=== PATIENT | male | born 1940 | race Caucasian/White ===

== ENCOUNTER → 2017-03-03 | Outpatient (CLI) | payer MEDICARE, OTHER ==
[~2017-03-03] MED LIST: ASP325T PO; ATOR40TA PO; DILT360C26 PO; FLAX100031 PO; GLMP4T PO; LSNP10T PO; MULT-963 PO; PGLT30T PO; SITA1TAB6 PO; UBID100C17 PO
--- NOTE | 2017-03-03 13:41 | Diagnostic Imaging Report ---
CLINICAL INDICATION: AAA screening. EXAM: Ultrasound of the abdominal aorta. COMPARISON STUDY: None. FINDINGS: Of note, there is extensive bowel gas overlying the abdomen which obscures the proximal aorta and bilateral proximal common iliac arteries and measurements in these regions were unable to be obtained. The visualized mid and distal abdominal aorta shows no aneurysmal dilation and measures 1.9 cm x 2.2 cm and 1.9 cm x 1.7 cm in the AP and transverse dimensions, respectively. IMPRESSION: 1: Limited evaluation due to overlying bowel gas. The proximal abdominal aorta and bilateral iliac arteries were unable to be evaluated. 2: The mid and distal abdominal aorta shows no evidence of aneurysmal dilation. Dictated by: Dictated on workstation # [id number]
== END ==
LOC: RAD 08:31
PROVIDERS: ATTEND Internal Medicine Cardiovascular Disease
DX: R09.89 Other specified symptoms and signs involving the circulatory and respiratory systems (principal); R19.8 Other specified symptoms and signs involving the digestive system and abdomen
CPT/HCPCS: 76775

== ENCOUNTER 2017-03-24 21:00 | Outpatient (CLI) | payer MEDICARE, OTHER | END 2017-03-25 06:05 | disposition home or self-care (01) | LOC: SLEEP 21:00 | PROVIDERS: ATTEND Nurse Practitioner Family | DX: G47.33 Obstructive sleep apnea (adult) (pediatric) (principal); G25.81 Restless legs syndrome; I48.91 Unspecified atrial fibrillation; E13.9 Other specified diabetes mellitus without complications | CPT/HCPCS: 95811 ==

== ENCOUNTER 2017-05-20 19:42 | Outpatient (CLI) | payer MEDICARE, OTHER | END 2017-05-21 06:40 | disposition home or self-care (01) | LOC: SLEEP 19:42 | PROVIDERS: ATTEND Nurse Practitioner Family | DX: G47.33 Obstructive sleep apnea (adult) (pediatric) (principal); G25.81 Restless legs syndrome | CPT/HCPCS: 95811 ==

== ENCOUNTER 2018-04-02 05:35 | Outpatient (CLI) | payer MEDICARE, OTHER ==
[~2018-04-02] VITALS: Ht 190.5 cm; Wt 102.5 kg
[2018-04-02] MEDS ORDERED: GLUC1CAP37 PO (10:42)
[2018-04-02] MEDS ORDERED: GLIM4TAB PO (10:42)
[2018-04-02] MEDS ORDERED: MULT-35 PO (10:42)
[2018-04-02] MEDS ORDERED: DILT180C54 PO (10:42)
[2018-04-02] MEDS ORDERED: ATOR40TA70 PO (10:42)
[2018-04-02] MEDS ORDERED: SITA1TBM4 PO (10:42)
[2018-04-02] MEDS ORDERED: LISI10TA2 PO (10:42)
[2018-04-02] MEDS ORDERED: FLAX10004 PO (10:42)
[2018-04-02] MEDS ORDERED: RIVA20TA PO (10:42)
== END 2018-04-02 10:46 | disposition home or self-care (01) ==
LOC: PREOP 05:35
PROVIDERS: ATTEND Surgery
DX: Z01.818 Encounter for other preprocedural examination (principal)

== ENCOUNTER 2018-04-09 10:31 | Day surgery (SDC) | payer MEDICARE, OTHER ==
[~2018-04-09] VITALS: Ht 190.5 cm; Wt 102.5 kg
[~2018-04-09 10:31] MED LIST changes: +ATOR40TA70 PO; +DILT180C54 PO; +FLAX10004 PO; +GLIM4TAB PO; +GLUC1CAP37 PO; +LISI10TA2 PO; +MULT-35 PO; +RIVA20TA PO; +SITA1TBM4 PO
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
[2018-04-09] MEDS ORDERED: NS IV 500 ML 500 ML ONE (10:35)
[2018-04-09] MEDS ORDERED: NS IV 500 ML 500 ML IV PRN (10:41)
[2018-04-09 10:45] VITALS: BP 143/77
[2018-04-09] MEDS ORDERED: fentaNYL INJECTION 100 MCG/2 ML AMP IVP ONE (10:45)
[2018-04-09] MEDS ORDERED: MIDAZOLAM 2 MG/2 ML (VERSED) VIAL IVP ONE (10:45)
[2018-04-09] MEDS ORDERED: MIDAZOLAM 2 MG/2 ML (VERSED) VIAL ONE ×3 (10:52)
[2018-04-09] MEDS ORDERED: fentaNYL INJECTION 100 MCG/2 ML AMP ONE (10:53)
[2018-04-09] MEDS ORDERED: GLIM4TAB PO (11:08)
--- NOTE | 2018-04-09 12:05 | Conscious Sedation/ASA ---
Conscious Sedation Pre-Proced Time 10:30 ASA Score 2 For ASA 3 and 4: Consider anesthesia and medical clearance. Also, for patients with a history of failed moderate sedation consider anesthesia. Airway Lungs Heart ASA score ASA 1: a normal healthy patient ASA 2: a patient with a mild systemic disease (mid diabetes, controlled hypertension, obesity ASA 3: a patient with a severe systemic disease that limits activity (angina , COPD, prior Myocardial infarction) ASA 4: a patient with an incapacitating disease that is a constant threat to life (CHF, renal failure) ASA 5: a moribund patient not expected to survive 24 hrs. (ruptured aneurysm) ASA 6: a declared brain patient whose organs are being harvested. For emergent operations, add the letter E after the classification Mallampati Classification Grade 2 Sedation Plan Analgesia, Amnesia, Plan communicated to team members, Discussed options with patient/fam, Discussed risks with patient/fam The patient is an appropriate candidate to undergo the planned procedure, sedation, and anesthesia. The patient immediately re-assessed prior to indication. ELVIRA MCKEON MD Apr 09, 2018 12:05 pm
--- NOTE | 2018-04-09 12:06 | Progress Note-Pre Operative ---
Pre-Operative Progress Note H&P Reviewed The H&P was reviewed, patient examined and no changes noted. Date Seen by Provider: Apr 09, 2018 Time Seen by Provider: 10: Date H&P Reviewed: Apr 09, 2018 Time H&P Reviewed: : Pre-Operative Diagnosis: rectal bleed, hx rectal polyp ELVIRA MCKEON MD Apr 09, 2018 12:06 pm
--- NOTE | 2018-04-09 12:07 | Progress Note-Post Operative ---
Post-Operative Progess Note Surgeon (s)/Box Toe Cutter (s) Surgeon ELVIRA MCKEON MD Box Toe Cutter: none Pre-Operative Diagnosis rectal bleed, hx rectal polyp Post-Operative Diagnosis chronic stage 1 ext, stage 2-3 int hemorrhoids, small HP rectal polyp(1-2mm) Procedure & Operative Findings Date of Procedure 04/09/18 Procedure Performed/Findings Colonoscopy with bx. Anesthesia Type CS Estimated Blood Loss Estimated blood loss (mL): minimal Specimens/Packing Specimens Removed rectal polyp ELVIRA MCKEON MD Apr 09, 2018 12:07 pm
--- NOTE | 2018-04-09 12:08 | Discharge Inst-Surgical ---
D/C Lap Instructions-LINDA Follow Up PRN Activity as tolerated High Fiber Diet 25g or more per day Avoid Alcohol, Caffeine, Spicy [place] and Acid foods. Drink 64 fluid oz or more of fluids per day. Symptoms to Report: Fever over 101 degree F, Nausea/Vomiting If any problems/questions: Contact your physician or go to Emergency Room ELVIRA MCKEON MD Apr 09, 2018 12:08 pm
[2018-04-09 12:15] VITALS: BP 108/62
[2018-04-09] MEDS ORDERED: ONDANSETRON 4 MG/2 ML (SDV) Z0FRAN IV PRN (12:15)
[2018-04-09] MEDS ORDERED: HYDROcodone/APAP 5 MG/325 MG (LORTAB) TAB PO PRN (12:15)
[2018-04-09] MEDS ORDERED: ACETAMINOPHEN 325 MG TABLET PO PRN (12:15)
[2018-04-09] MEDS ORDERED: morphine INJ 10 MG/ML 1ML (SYR OR VIAL) IV PRN (12:15)
[2018-04-09 12:40] VITALS: BP 110/64
[2018-04-09 12:50] VITALS: BP 110/64
--- NOTE | 2018-04-09 19:48 | OPERATIVE REPORT ---
DATE OF SERVICE: 04/09/2018 ATTENDING PRIMARY CARE PHYSICIAN: Dr. Erwin. PREOPERATIVE DIAGNOSES: Rectal bleeding, history of colon polyp. POSTOPERATIVE DIAGNOSES: Chronic stage I external hemorrhoids. Chronic between stage II and III internal hemorrhoids with mild edema, no bleeding. Small polyp of the rectum, approximately 1 to 2 mm in size. Remainder of the colon was normal. PROCEDURE: Colonoscopy with biopsy. SURGEON: Elvira Mckeon MD ANESTHESIA: Conscious sedation. ESTIMATED BLOOD LOSS: Minimal. FINDINGS: Chronic stage I external hemorrhoids. Chronic between stage II and III internal hemorrhoids with mild edema; however, no active bleeding. Small polyp of the rectum, approximately 1 to 2 mm in size. The remainder of the colon was normal. DISPOSITION: The patient tolerated the procedure well. INDICATIONS: The patient is a 77-year-old male with intermittent episodes of rectal bleeding. He states that he has had a problem with hemorrhoids in the past and will notice bright red blood per rectum on an intermittent basis, which would be self-limited, stop on its own. He also has had a history of colon polyps with his last colonoscopy performed in 2012, which came back as benign hyperplastic polyp. He does not report any family history of colon cancer. He is also on anticoagulation with Xarelto for atrial fibrillation. DESCRIPTION OF PROCEDURE: The patient was brought to the endoscopy suite, laid in the left lateral decubitus position. After adequate IV pain and sedating medications and conscious sedation anesthesia, a digital rectal examination was performed. Chronic stage I external hemorrhoids identified. There was a more significant internal hemorrhoids, which were approximately between stage II and III and palpable; however, reduced. Normal sphincter tone was felt and there were no palpable masses. The prostate gland was palpable and appeared normal. The endoscope was then intubated in to the anus and the rectum was gently insufflated. The endoscope was then advanced through the valves of Ivy of the rectum. At the distal rectum, a small polyp approximately 1 to 2 mm in size was identified. This was biopsied and destroyed using forceps and electrocautery with visualization of good hemostasis. This appeared to be a benign hyperplastic polyp as well. The endoscope was then advanced to the remainder of the descending, transverse and ascending colon to cecum. These segments were normal. The endoscope was then slowly withdrawn while taking a second look and suctioning of residual air with no additional findings. The patient tolerated the procedure well. We will confirm that we will await the biopsy results and if this is a benign hyperplastic polyp, he does not need another screening colonoscopy for another 10 years. He does have significant between stage II and III internal hemorrhoids, which is the cause of his bleeding. If he continues to have symptomatic bleeding or anemia, the next step would be to proceed with hemorrhoidal banding versus a formal internal hemorrhoidectomy. In the meantime, we will recommend a high fiber diet with at least 30 grams of fiber per day as well as copious amounts of water to promote soft stools on a daily basis and never hard constipated stools that require straining upon defecation. He may start his anticoagulation tomorrow. Job ID: [id number] DocumentID: [id number] Dictated Date: 04/09/2018 12:01:46 Squad Boss Date: 04/09/2018 19:46:55 Dictated By: ELVIRA MCKEON MD
== END 2018-04-09 12:45 | disposition home or self-care (01) ==
LOC: ENDO 10:31
PROVIDERS: ATTEND Surgery
DX: K62.1 Rectal polyp (principal); K64.2 Third degree hemorrhoids; K64.4 Residual hemorrhoidal skin tags; I48.91 Unspecified atrial fibrillation; E11.9 Type 2 diabetes mellitus without complications; E78.00 Pure hypercholesterolemia, unspecified; Z86.010 Personal history of colon polyps; G47.33 Obstructive sleep apnea (adult) (pediatric); Z79.01 Long term (current) use of anticoagulants; Z79.899 Other long term (current) drug therapy; Z79.84 Long term (current) use of oral hypoglycemic drugs; Z80.42 Family history of malignant neoplasm of prostate
CPT/HCPCS: 82962

== ENCOUNTER 2018-08-01 10:16 | Inpatient (IN) | payer MEDICARE, OTHER ==
[~2018-08-01] VITALS: Ht 190.5 cm; Wt 99.5 kg
[2018-08-01] VITALS (14 sets, daily range): BP systolic 92–157; BP diastolic 43–76
[2018-08-01 10:35] LABS: BASOPHILS % (AUTO) 0 % (0-10); EOSINOPHILS # (AUTO) 0.1 10^3/uL (0.0-0.3); EOSINOPHILS % (AUTO) 1 % (0-10); HEMATOCRIT 48 % (40-54); HEMOGLOBIN 16.5 G/DL (13.3-17.7); LYMPHOCYTES # (AUTO) 2.6 X 10^3 (1.0-4.0); LYMPHOCYTES % (AUTO) 33 % (12-44); MEAN CORPUSCULAR HEMOGLOBIN 34 PG (25-34); MEAN CORPUSCULAR HGB CONC 34 G/DL (32-36); MEAN CORPUSCULAR VOLUME 98 FL (80-99); MEAN PLATELET VOLUME 11.4 FL (7.4-10.4); MONOCYTES # (AUTO) 0.9 X 10^3 (0.0-1.0); MONOCYTES % (AUTO) 12 % (0-12); NEUTROPHILS # (AUTO) 4.2 X 10^3 (1.8-7.8); NEUTROPHILS % (AUTO) 54 % (42-75); PLATELET COUNT 168 10^3/uL (130-400); RED CELL DISTRIBUTION WIDTH 12.7 % (10.0-14.5); WHITE BLOOD COUNT 7.7 10^3/uL (4.3-11.0)
--- NOTE | 2018-08-01 10:36 | ED Neurological Problem ---
General Stated Complaint: POSS STROKE Source: patient, family Exam Limitations: no limitations History of Present Illness Date Seen by Provider: Aug 01, 2018 Time Seen by Provider: 10:31 Initial Comments 78-year-old white male presents with strokelike symptoms that began yesterday. The patient complained of a headache and slept most of the day. Last night his noted that he was unable to recall is birthday. The patient this morning demonstrated problems with his speech. He was unable to complete sentences. His thought that his speech was slightly slurred. Patient has had no similar episodes in the past. The patient denies fever, chills, cough, chest pain or palpitations, nausea vomiting or diarrhea, or other neurologic complaint. Patient denies new medications. He is not taking blood thinners. The patient is diabetic. Allergies and Home Medications Allergies Coded Allergies: No Known Drug Allergies (Unverified , 04/02/18) Home Medications Atorvastatin Calcium 40 Mg Tablet, 40 MG PO DAILY, (Reported) Diltiazem HCl 180 Mg Cap.er.24h, 180 MG PO DAILY, (Reported) Flaxseed Oil 1,000 Mg Capsule, 1,000 MG PO DAILY, (Reported) Glimepiride 4 Mg Tablet, 8 MG PO BID, (Reported) Glucosa [place] 2Kcl/Chondroitin [place] 1 Each Capsule, 1 EACH PO DAILY, (Reported) Lisinopril 10 Mg Tablet, 10 MG PO DAILY, (Reported) Multivitamin 1 Each Tablet, 1 EACH PO DAILY, (Reported) Rivaroxaban 20 Mg Tablet, 20 MG PO DAILY, (Reported) Sitagliptin Phos/Metformin HCl 1 Each Tbmp.24hr, 1 EACH PO BID, (Reported) Patient Home Medication List Home Medication List Reviewed: Yes Review of Systems Review of Systems Constitutional: No chills, No fever Eyes: Denies Blindness, Denies Blurred Vision Ears, Nose, Mouth, Throat: denies ear pain Respiratory: No cough Cardiovascular: No chest pain, No palpitations Gastrointestinal: No abdominal pain, No diarrhea, No nausea, No vomiting Genitourinary: No dysuria, No frequency Musculoskeletal: No back pain Skin: No change in color, No rash Psychiatric/Neurological: No Symptoms Reported Endocrine: No Symptoms Reported Hematologic/Lymphatic: No Symptoms Reported Past Plaraik-Jkkkmx-Ahwavh Hx Past Med/Social Hx: Reviewed Nursing Past Med/Soc Hx Patient Social History Recent Foreign Travel: No Contact w/Someone Who Travel: No Recent Hopitalizations: No Immunizations Up To Date Tetanus Booster (TDap): Unknown PED Vaccines UTD: No Date of Pneumonia Vaccine: Apr 28, 2016 Date of Influenza Vaccine: Apr 27, 2017 Seasonal Allergies Seasonal Allergies: No Past Medical History Tonsillectomy Sleep Apnea Currently Using BIPAP: Yes Atrial Fibrillation, Hypertension Polyps Arthritis Loss of Vision: Bilateral Hearing Impairment: Hard of Hearing Adverse Reaction/Blood Tranf: No (N/A) Physical Exam Vital Signs Vital Signs - First Documented 08/01/18 10:20 Temp 97.3 Pulse 81 Resp 18 B/P (MAP) 160/80 (106) Pulse Ox 99 O2 Delivery Room Air Capillary Refill : Height, Weight, BMI Height: 6'3.00" Weight: 226lbs. 0.0oz. 102.573761ts; 28.3 BMI Method: General Appearance: WD/WN, no apparent distress HEENT: normal ENT inspection Neck: full range of motion Respiratory: lungs clear Cardiovascular: regular rate, rhythm Gastrointestinal: normal bowel sounds, non tender, soft Back: normal inspection, no CVA tenderness Extremities: normal range of motion Neurologic/Psychiatric: no motor/sensory deficits, alert, normal mood/affect, oriented x 3 Crainal Nerves: normal hearing, normal speech, PERRL Motor/Sensory: no motor deficit, no sensory deficit Skin: normal color, warm/dry Stroke Onset of Symptoms Date of Onset of Symptoms: Jul 31, 2018 Time of Symptom Onset: 10:00 Onset of Symptoms: Yes NIH Stroke Scale Assessment Select: Initial Level of Consciousness: 0=Alert (0), Level of Consciousness- Questions: 0=Answers both month/age (0), LOC Commands: 0=Performs both tasks (0) , Gaze: Normal (0), Visual Hernandez: 0=No visual loss (0), Facial Movement ( Facial Paresis): 0=Normal symmetrical mnt (0), Motor Function-Arms Right: 0=No drift (0), Motor Function-Arms Left: 0=No drift (0), Motor Function-Legs Right: 0=No drift (0), Motor Function-Legs Left: 0=No drift (0), Limb Ataxia: 0=Absent (0), Sensory: 0=Normal:no loss (0), Best Language: 0=No aphasia (0), Dysarthria : 0=Normal (0), Extinction & Inattention: 1=Visual,tactile,auditory (1), Total: 1 IV - TPa Received IV - TPa Procedure Performed?: No Progress/Results/Core Measures Results/Orders Lab Results Laboratory Tests Test 08/01/18 10:24 08/01/18 10:37 Range/Units White Blood Count 7.7 4.3-11.0 10^3/uL Red Blood Count 4.89 4.35-5.85 10^6/uL Hemoglobin 16.5 13.3-17.7 G/DL Hematocrit 48 40-54 % Mean Corpuscular Volume 98 80-99 FL Mean Corpuscular Hemoglobin 34 25-34 PG Mean Corpuscular Hemoglobin Concent 34 32-36 G/DL Red Cell Distribution Width 12.7 10.0-14.5 % Platelet Count 168 130-400 10^3/uL Mean Platelet Volume 11.4 H 7.4-10.4 FL Neutrophils (%) (Auto) 54 42-75 % Lymphocytes (%) (Auto) 33 12-44 % Monocytes (%) (Auto) 12 0-12 % Eosinophils (%) (Auto) 1 0-10 % Basophils (%) (Auto) 0 0-10 % Neutrophils # (Auto) 4.2 1.8-7.8 X 10^3 Lymphocytes # (Auto) 2.6 1.0-4.0 X 10^3 Monocytes # (Auto) 0.9 0.0-1.0 X 10^3 Eosinophils # (Auto) 0.1 0.0-0.3 10^3/uL Basophils # (Auto) 0.0 0.0-0.1 10^3/uL Prothrombin Time 19.7 H 12.2-14.7 SEC INR Comment 1.7 H 0.8-1.4 Activated Partial Thromboplast Time 38 H 24-35 SEC D-Dimer < 0.27 0.00-0.49 UG/ML Sodium Level 137 135-145 MMOL/L Potassium Level 4.4 3.6-5.0 MMOL/L Chloride Level 99 98-107 MMOL/L Carbon Dioxide Level 20 L 21-32 MMOL/L Anion Gap 18 H 5-14 MMOL/L Blood Urea Nitrogen 24 H 7-18 MG/DL Creatinine 1.19 0.60-1.30 MG/DL Estimat Glomerular Filtration Rate 59 BUN/Creatinine Ratio 20 Glucose Level 313 H 70-105 MG/DL Calcium Level 9.8 8.5-10.1 MG/DL Corrected Calcium 8.5-10.1 MG/DL Total Bilirubin 1.3 H 0.1-1.0 MG/DL Aspartate Amino Transf (AST/SGOT) 27 5-34 U/L Alanine Aminotransferase (ALT/SGPT) 19 0-55 U/L Alkaline Phosphatase 92 40-136 U/L Troponin I < 0.028 <0.028 NG/ML Total Protein 7.9 6.4-8.2 GM/DL Albumin 4.7 H 3.2-4.5 GM/DL Glucometer 324 H 70-110 MG/DL My Orders Orders - ALICE ESPINOSA MD Cbc With Automated Diff (08/01/18 10:28) Protime With Inr (08/01/18 10:28) Partial Thromboplastin Time (08/01/18 10:28) Comprehensive Metabolic Panel (08/01/18 10:28) Fibrin Degradation Products (08/01/18 10:28) Troponin I (08/01/18 10:28) Ua Culture If Indicated (08/01/18 10:28) Chest 1 View, Ap/Pa Only (08/01/18 10:28) Ekg Tracing (08/01/18 10:28) Nothing By Mouth (08/01/18 Lunch) Accucheck Stat ONCE (08/01/18 10:28) Saline Lock/Iv-Start (08/01/18 10:28) Saline Lock/Iv-Start (08/01/18 10:28) Vital Signs Stroke Patient Q15M (08/01/18 10:28) Ct Head Wo-R/O Stroke (08/01/18 10:28) O2 (08/01/18 10:28) Intake & Output 06,14,22 (08/01/18 10:28) Monitor-Rhythm Ecg Trace Only (08/01/18 10:28) Dysphagia Screening Tool (08/01/18 10:28) Post Thrombolytic Adminstratio (08/01/18 10:28) Lipid Panel (08/02/18 06:00) Vital Signs/I&O 08/01/18 10:20 Temp 97.3 Pulse 81 Resp 18 B/P (MAP) 160/80 (106) Pulse Ox 99 O2 Delivery Room Air Progress Progress Note : Time: 11:[address] of the head, chest x-ray, and laboratory evaluation failed to demonstrate evidence of intracranial hemorrhage, pneumonia, or significant laboratory abnormality. Dr. Holder was kind enough to admit the patient to a monitored bed. Orders were written for telemetry bed. MRI of the brain, echo and carotid Doppler were ordered. Patient was transferred to floor in stable condition. Departure Communication (Admissions) Time/Spoke to Admitting Phy: 11:38 Dr. Holder Impression Primary Impression: Cerebrovascular accident due to cerebral artery occlusion Disposition: ADMITTED INPATIENT Condition: Unchanged Admissions Decision to Admit Reason: Admit from ER (General) Decision to Admit/Date: Aug 01, 2018 Time/Decision to Admit Time: 11:38 Departure-Patient Inst. Referrals: NICKY WIN DO (PCP/Family) Primary Care Physician ALICE ESPINOSA MD Aug 01, 2018 10:36
--- OUTSIDE RECORDS SUMMARY | 2018-08-01 10:38 | XMS REPORT | Continuity of Care Document ---
Author Author [facility] Organization [facility] Address Unknown Phone Unavailable Allergies Active Description Code Type Severity Reaction Onset Reported/Identified Relationship to Patient Clinical Status Yes No Known Drug Allergies [id number] Drug Allergy Unknown N/A 04/02/2018 Medications There [...] INVOLVING THE CIR 03/23/2017 SHAN, BLAYNE E RACING SECRETARY AND HANDICAPPER Ot G47.9 SLEEP DISORDER, UNSPECIFIED 03/24/2017 SHAN, BLAYNE E RACING SECRETARY AND HANDICAPPER Ot G47.9 SLEEP DISORDER, UNSPECIFIED 03/25/2017 SHAN, BLAYNE E RACING SECRETARY AND HANDICAPPER Ot E13.9 OTHER SPECIFIED DIABETES MELLITUS WITHOU 03/25/2017 SHAN, BLAYNE E RACING SECRETARY AND HANDICAPPER Ot G25.81 RESTLESS LEGS SYNDROME 03/25/2017 SHAN, BLAYNE E RACING SECRETARY AND HANDICAPPER Ot G47.33 OBSTRUCTIVE SLEEP APNEA (ADULT) (PEDIATR 03/25/2017 SHAN, BLAYNE E RACING SECRETARY AND HANDICAPPER Ot I48.91 UNSPECIFIED ATRIAL FIBRILLATION 03/27/2017 KRIS CHANEL MD Ot R09.89 OTH SYMPTOMS AND SIGNS INVOLVING THE CIR 03/27/2017 KRIS CHANEL MD Ot R19.8 OTH SYMPTOMS AND SIGNS INVOLVING THE DGS 03/30/2017 SHAN, BLAYNE E RACING SECRETARY AND HANDICAPPER Ot E13.9 OTHER SPECIFIED DIABETES MELLITUS WITHOU 03/30/2017 SHAN, BLAYNE E RACING SECRETARY AND HANDICAPPER Ot G25.81 RESTLESS LEGS SYNDROME 03/30/2017 SHAN, BLAYNE E RACING SECRETARY AND HANDICAPPER Ot G47.33 OBSTRUCTIVE SLEEP APNEA (ADULT) (PEDIATR 03/30/2017 SHAN, BLAYNE E RACING SECRETARY AND HANDICAPPER Ot I48.91 UNSPECIFIED ATRIAL FIBRILLATION 05/13/2017 SHAN, BLAYNE E RACING SECRETARY AND HANDICAPPER Ot G47.33 OBSTRUCTIVE SLEEP APNEA (ADULT) (PEDIATR 05/19/2017 SHAN, BLAYNE E RACING SECRETARY AND HANDICAPPER Ot G47.33 OBSTRUCTIVE SLEEP APNEA (ADULT) (PEDIATR 05/19/2017 SHAN, BLAYNE E RACING SECRETARY AND HANDICAPPER Ot G47.33 OBSTRUCTIVE SLEEP APNEA (ADULT) (PEDIATR 05/20/2017 SHAN, BLAYNE E RACING SECRETARY AND HANDICAPPER Ot G47.33 OBSTRUCTIVE SLEEP APNEA (ADULT) (PEDIATR 05/21/2017 SHAN, BLAYNE E RACING SECRETARY AND HANDICAPPER Ot G25.81 RESTLESS LEGS SYNDROME 05/21/2017 BLAYNE [...] SIGNS INVOLVING THE DGS 04/02/2018 ELVIRA MCKEON MD, Ot Z01.818 ENCOUNTER FOR OTHER PREPROCEDURAL EXAMIN 04/09/2018 NICKY WIN DO Ot 459.81 VENOUS INSUFFICIENCY NOS 04/09/2018 NICKY WIN DO Ot 782.3 EDEMA 04/09/2018 KRIS CHANEL MD Ot R09.89 OTH SYMPTOMS AND SIGNS INVOLVING THE CIR 04/09/2018 KRIS CHANEL MD Ot R19.8 OTH SYMPTOMS AND SIGNS INVOLVING THE DGS 04/09/2018 ELVIRA MCKEON MD, Ot E11.9 TYPE 2 DIABETES MELLITUS WITHOUT COMPLIC 04/09/2018 ELVIRA MCKEON MD, Ot E78.00 PURE HYPERCHOLESTEROLEMIA, UNSPECIFIED 04/09/2018 ELVIRA MCKEON MD, Ot G47.33 OBSTRUCTIVE SLEEP APNEA (ADULT) (PEDIATR 04/09/2018 ELVIRA MCKEON MD Ot I48.91 UNSPECIFIED ATRIAL FIBRILLATION 04/09/2018 ELVIRA MCKEON MD Ot K62.1 RECTAL POLYP 04/09/2018 ELVIRA MCKEON MD, Ot K64.2 THIRD DEGREE HEMORRHOIDS 04/09/2018 ELVIRA MCKEON MD, Ot K64.4 RESIDUAL HEMORRHOIDAL SKIN TAGS 04/09/2018 ELVIRA MCKEON MD Ot Z79.01 NURSING HOME (CURRENT) USE OF ANTICOAGULANT 04/09/2018 ELVIRA MCKEON MD, Ot Z79.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) USE OF ORAL HYPOGLYC 04/09/2018 ELVIRA MCKEON MD, Ot Z79.899 OTHER ELECTRIC METER TESTER HELPER (CURRENT) DRUG THERAPY 04/09/2018 ELVIRA MCKEON MD, Ot Z80.42 FAMILY HISTORY OF MALIGNANT NEOPLASM OF 04/09/2018 ELVIRA MCKEON MD, Ot Z86.010 PERSONAL HISTORY OF COLONIC POLYPS 04/13/2018 ELVIRA MCKEON MD, Ot E11.9 TYPE 2 DIABETES MELLITUS WITHOUT COMPLIC 04/13/2018 ELVIRA MCKEON MD, Ot E78.00 PURE HYPERCHOLESTEROLEMIA, UNSPECIFIED 04/13/2018 KIDO MD, TAKAAKI Ot G47.33 OBSTRUCTIVE SLEEP APNEA (ADULT) (PEDIATR 04/13/2018 ELVIRA MCKEON MD Ot I48.91 UNSPECIFIED ATRIAL FIBRILLATION 04/13/2018 ELVIRA MCKEON MD, Ot K62.1 RECTAL POLYP 04/13/2018 ELVIRA MCKEON MD Ot K64.2 THIRD DEGREE HEMORRHOIDS 04/13/2018 ELVIRA MCKEON MD, Ot K64.4 RESIDUAL HEMORRHOIDAL SKIN TAGS 04/13/2018 ELVIRA MCKEON MD, Ot Z79.01 ELECTRIC METER TESTER HELPER (CURRENT) USE OF ANTICOAGULANT 04/13/2018 ELVIRA MCKEON MD Ot Z79.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) USE OF ORAL HYPOGLYC 04/13/2018 ELVIRA MCKEON MD Ot Z79.899 OTHER NURSING HOME (CURRENT) DRUG THERAPY 04/13/2018 ELVIRA MCKEON MD, Ot Z80.42 FAMILY HISTORY OF MALIGNANT NEOPLASM OF 04/13/2018 ELVIRA MCKEON MD, Ot Z86.010 PERSONAL HISTORY OF COLONIC POLYPS 04/21/2018 ELVIRA MCKEON MD Ot E11.9 TYPE 2 DIABETES MELLITUS WITHOUT COMPLIC 04/21/2018 ELVIRA MCKEON MD Ot E78.00 PURE HYPERCHOLESTEROLEMIA, UNSPECIFIED 04/21/2018 ELVIRA MCKEON MD, Ot G47.33 OBSTRUCTIVE SLEEP APNEA (ADULT) (PEDIATR 04/21/2018 ELVIRA MCKEON MD, Ot I48.91 UNSPECIFIED ATRIAL FIBRILLATION 04/21/2018 ELVIRA MCKEON MD, Ot K62.1 RECTAL POLYP 04/21/2018 ELVIRA MCKEON MD, Ot K64.2 THIRD DEGREE HEMORRHOIDS 04/21/2018 ELVIRA MCKEON MD, Ot K64.4 RESIDUAL HEMORRHOIDAL SKIN TAGS 04/21/2018 ELVIRA MCKEON MD, Ot Z79.01 ELECTRIC METER TESTER HELPER (CURRENT) USE OF ANTICOAGULANT 04/21/2018 ELVIRA MCKEON MD Ot Z79.84 NURSING HOME (CURRENT) USE OF ORAL HYPOGLYC 04/21/2018 ELVIRA MCKEON MD Ot Z79.899 OTHER NURSING HOME (CURRENT) DRUG THERAPY 04/21/2018 ELVIRA MCKEON MD Ot Z80.42 FAMILY HISTORY OF MALIGNANT NEOPLASM OF 04/21/2018 ELVIRA MCKEON MD Ot Z86.010 PERSONAL HISTORY OF COLONIC POLYPS Procedures There is no data. Results Test Result Range Holter Montor 24 Hour - 02/18/18 08:42 Holter Monitor 24 Hour Complete Capillary blood glucose measurement by glucometer (mass/volume) - 04/09/18 10: 56 Capillary blood glucose measurement by glucometer (mass/volume) 177 mg/dL 70-110 Encounters ACCT No. Visit Date/Time Discharge Status Pt. Type Provider Facility Loc./Unit Complaint [id number] 04/09/2018 10:31:00 04/09/2018 12:45:00 DIS Outpatient ELVIRA MCKEON MD [facility] ENDO RECTAL BLEEDING/HX POLYPS [id number] 04/02/2018 05:35:00 04/02/2018 10:46:00 DIS Outpatient ELVIRA MCKEON MD [facility] PREOP COLONOSCOPY [id number] 05/20/2017 19:42:00 05/21/2017 06:40:00 DIS Outpatient BLAYNE TORREZ APRN [facility] SLEEP JERALD G47.33 [id number] 03/24/2017 21:00:00 03/25/2017 06:05:00 DIS Outpatient BLAYNE TORREZ APRN [facility] SLEEP G47.9 [id number] 03/03/2017 08:31:00 03/03/2017 23:59:59 CLS Outpatient KRIS CHANEL MD [facility] RAD R09.89 R19.8 [id number] 03/22/2015 11:22:00 03/22/2015 23:59:59 CLS Outpatient NICKY WIN DO [facility] RAD EDEMA,VENOUS STASIS [id number] 09/22/2012 07:58:00 Document Registration [id number] 09/15/2012 07:19:00 Document Registration [id number] 01/06/2012 08:45:00 Document Registration [id number] 02/18/2018 08:16:00 02/18/2018 23:59:00 DIS Outpatient Kris Chanel [facility] 03/22/2015 11:25:38 ACT Document Registration
[2018-08-01] MEDS ORDERED: XARELTO (10:52)
[2018-08-01 10:53] LABS: ALANINE AMINOTRANSFERASE 19 U/L (0-55); ALBUMIN 4.7 GM/DL (3.2-4.5); ALKALINE PHOSPHATASE 92 U/L (40-136); BILIRUBIN,TOTAL 1.3 MG/DL (0.1-1.0); BUN/CREATININE RATIO 20; CALCIUM 9.8 MG/DL (8.5-10.1); CARBON DIOXIDE 20 MMOL/L (21-32); CHLORIDE 99 MMOL/L (98-107); CREATININE SERUM 1.19 MG/DL (0.60-1.30); GFR ESTIMATED 59; GLUCOSE 313 MG/DL (70-105); POTASSIUM 4.4 MMOL/L (3.6-5.0); SODIUM 137 MMOL/L (135-145); TOTAL PROTEIN 7.9 GM/DL (6.4-8.2)
[2018-08-01 11:05] LABS: FIBRIN DEGRADATION PRODUCTS < 0.27 UG/ML (0.00-0.49); INR 1.7 (0.8-1.4); PARTIAL THROMBOPLASTIN TIME 38 SEC (24-35); PROTHROMBIN TIME PATIENT 19.7 SEC (12.2-14.7)
--- NOTE | 2018-08-01 11:06 | Diagnostic Imaging Report ---
PROCEDURE: CT head wo r/o stroke. TECHNIQUE: Multiple contiguous axial images were obtained through the brain without the use of intravenous contrast. INDICATION: Acute confusion and amnesia. COMPARISON: Comparison is made to study of 01/06/2012. FINDINGS: Ventricles and sulci are diffusely prominent and there is moderate low density throughout the deep white matter of both cerebral hemispheres. There is no evidence of hemorrhage. No geographic low density is seen to indicate a territorial infarct. There is atherosclerotic calcification within distal internal carotid arteries, bilaterally. The calvarium is intact and the visualized paranasal sinuses are clear. IMPRESSION: Progression of involutional findings in the brain however no acute abnormality is identified. MRI has greater sensitivity for acute infarction. Dictated by: Dictated on workstation # [id number]
--- NOTE | 2018-08-01 11:10 | Diagnostic Imaging Report ---
INDICATION: Confusion and amnesia Single AP view of the chest is obtained. COMPARISON: No previous study is available for comparison at this time. FINDINGS: Heart size and pulmonary vasculature are within normal limits, and the lungs are clear, bilaterally. IMPRESSION: Unremarkable chest. Dictated by: Dictated on workstation # [id number]
[2018-08-01] MEDS ORDERED: fentaNYL INJECTION 100 MCG/2 ML AMP ONE (11:47)
[2018-08-01] MEDS ORDERED: NS IV 1000 ML 1,000 ML ONE (11:47)
[2018-08-01] MEDS ORDERED: ONDANSETRON 4 MG/2 ML (SDV) Z0FRAN IVP ONE (12:00)
[2018-08-01] MEDS ORDERED: fentaNYL INJECTION 100 MCG/2 ML AMP IVP ONE (12:00)
[2018-08-01] MEDS ORDERED: NS IV 1000 ML 1,000 ML IV SCH (12:00)
--- NOTE | 2018-08-01 17:36 | NUR ---
Dr. Holder called and notified regarding pt increase in NIH-stroke scale. Pt condition discussed. No new orders received. Will continue to monitor pt.
[2018-08-01] MEDS ORDERED: inSUlin ASPART (NovoLOG) 1 UNIT/0.01 ML (CHARGE PER UNIT) SC SCH (19:30)
[2018-08-01] MEDS: inSUlin ASPART (NovoLOG) 1 UNIT/0.01 ML (CHARGE PER UNIT) SC SCH (20:31)
--- NOTE | 2018-08-01 21:55 | NUR ---
Upon entering room, pt told this RN that he had his own home medications in his bag and he had taken them. This RN educated pt and family about hospital policy and procedure, pt and verbalized understanding. Pt reported taking home janumet, a B-complex vitamin, and glimipride. Again, this RN educated pt and emphasized the reasons for policies. Pt had been given insulin SQ for blood sugar of 216 (see interventions and eMAR). Pt reports taking medications after insulin was administered. Pt again educated, and pt verbalized understanding and agreement.
--- NOTE | 2018-08-01 22:00 | NUR ---
Pt to room 418, bedside report and care of pt given to RODRIGUEZ Monique.
[2018-08-02] VITALS: BP 113/55
[2018-08-02 03:45] VITALS: BP 117/58
[2018-08-02 04:46] LABS: BASOPHILS % (AUTO) 1 % (0-10); EOSINOPHILS % (AUTO) 1 % (0-10); HEMATOCRIT 42 % (40-54); HEMOGLOBIN 14.3 G/DL (13.3-17.7); LYMPHOCYTES # (AUTO) 1.7 X 10^3 (1.0-4.0); LYMPHOCYTES % (AUTO) 26 % (12-44); MEAN CORPUSCULAR HEMOGLOBIN 34 PG (25-34); MEAN CORPUSCULAR HGB CONC 34 G/DL (32-36); MEAN CORPUSCULAR VOLUME 98 FL (80-99); MEAN PLATELET VOLUME 11.6 FL (7.4-10.4); MONOCYTES # (AUTO) 0.8 X 10^3 (0.0-1.0); MONOCYTES % (AUTO) 12 % (0-12); NEUTROPHILS % (AUTO) 61 % (42-75); PLATELET COUNT 132 10^3/uL (130-400); RED CELL DISTRIBUTION WIDTH 12.4 % (10.0-14.5); WHITE BLOOD COUNT 6.6 10^3/uL (4.3-11.0)
[2018-08-02 05:10] LABS: ALANINE AMINOTRANSFERASE 13 U/L (0-55); ALBUMIN 3.6 GM/DL (3.2-4.5); ALKALINE PHOSPHATASE 72 U/L (40-136); BUN/CREATININE RATIO 19; CALCIUM 8.8 MG/DL (8.5-10.1); CARBON DIOXIDE 22 MMOL/L (21-32); CHLORIDE 105 MMOL/L (98-107); CHOLESTEROL 107 MG/DL (< 200); GFR ESTIMATED > 60; GLUCOSE 98 MG/DL (70-105); HDL CHOLESTEROL 39 MG/DL (40-60); SODIUM 136 MMOL/L (135-145); TRIGLYCERIDES 50 MG/DL (<150); VLDL CHOLESTEROL 10 MG/DL (5-40)
[2018-08-02] MEDS: inSUlin ASPART (NovoLOG) 1 UNIT/0.01 ML (CHARGE PER UNIT) SC SCH ×2 (06:09→11:54)
[2018-08-02 08:00] VITALS: BP 126/63
[2018-08-02] MEDS ORDERED: ASPIRIN 325 MG (5 GR) TABLET PO SCH (09:00)
--- NOTE | 2018-08-02 09:23 | Diagnostic Imaging Report ---
CLINICAL INDICATION: Patient with stroke. COMPARISON: None. EXAM: Real-time carotid Doppler duplex imaging was performed bilaterally. Peak systolic velocity, ICA/CCA peak systolic ratio, spectral analysis, and vascular morphology were studied. FINDINGS: ARTERY VELOCITY Right Left CCA 1.47 m/s 0.98 m/s ICA 1.06 m/s 0.80 m/s ECA 1.32 m/s 1.20 m/s ICA/CCA 0.72 0.81 VERT.ART Antegrade Antegrade There is mild bilateral carotid artery atherosclerotic disease with no grayscale evidence of significant stenosis. There is elevated velocity within the right CCA of 1.47 m/s and an area of proximal stenosis cannot be completely excluded. There are elevated velocities within the right ECA of 1.32 m/s which may suggest a 60-79% stenosis but there is no grayscale evidence of stenosis seen in the region. IMPRESSION: 1. There are elevated velocities within the right CCA and an area of proximal stenosis, not visualized on this exam, cannot be completely excluded. CT angiogram of the head and neck would better evaluate. 2. There are elevated velocities involving the proximal right ECA with no grayscale evidence of stenosis in the region. This area would also be better evaluated on CT angiogram. 3. The remainder of the bilateral carotid arteries shows no grayscale or Doppler evidence of significant vascular stenosis. Dictated by: Dictated on workstation # [id number]
[2018-08-02 11:00] VITALS: BP 141/65
[2018-08-02] MEDS ORDERED: DILT180C PO (11:02)
[2018-08-02] MEDS ORDERED: SITA1TAB6 PO (11:02)
[2018-08-02] MEDS ORDERED: RIVA20TA PO (11:02)
[2018-08-02] MEDS ORDERED: MV-M1TAB13 PO (11:10)
[2018-08-02] MEDS ORDERED: GLUC100016 PO (11:10)
[2018-08-02] MEDS ORDERED: VITA1TAB17 PO (11:10)
[2018-08-02] MEDS ORDERED: ASPI-983 PO (11:10)
[2018-08-02] MEDS ORDERED: CHOL20003 PO (11:10)
--- NOTE | 2018-08-02 11:12 | NUR ---
WENT OVER MEDICATIONS WITH THE PATIENTS FAMILY, THEY HAD THEIR BOTTLES WITH THEM AND VERIFIED HOW HE TAKES EACH MEDICATION. OTC MEDS: GLUCOSAMINE 1000MG ASPIRIN 81MG FLAXSEED OIL 1000MG VITAMIN D3 2000 [facility]
[2018-08-02] MEDS ORDERED: GADOBUTROL 10 MMOL/10 ML (GADAVIST) VIAL IV ONE (11:30)
--- NOTE | 2018-08-02 11:55 | Diagnostic Imaging Report ---
PROCEDURE: MR imaging of the brain with and without contrast. TECHNIQUE: Multiplanar, multisequence MR imaging of the brain was performed with and without contrast. INDICATION: Confusion. COMPARISON: No prior studies are available for comparison. FINDINGS: Ventricles and sulci are prominent consistent with cerebral atrophy. There is moderate periventricular and subcortical white matter signal abnormalities, likely on the basis of chronic microvascular ischemia. No diffusion restriction is identified to suggest acute ischemia. The normal expected flow-voids within the carotid siphons are seen. No acute intra-axial or extra-axial hemorrhage is identified. The corpus callosum is unremarkable. The sella and parasellar structures are unremarkable. No abnormal enhancement is seen following contrast administration. IMPRESSION: Cerebral atrophy and changes of chronic microvascular ischemia. No acute abnormality is seen. Dictated by: Dictated on workstation # [id number]
--- NOTE | 2018-08-02 13:56 | History & Physical-Hospitalist ---
History of Present Illness HPI/Chief Complaint The patient is a 78-year-old white male who presented yesterday to the emergency room with complaints of abnormal speech. The patient related that he had begun to notice problem on Thursday. I am told that his NIH stroke score was 1. CT of the head showed no evidence of acute infarct. He now reports that he is basically without deficit. He was able to know that he was not saying the words he intended. His family states that by largely words were intelligible although his speech pattern appeared to be slower than usual. He is diabetic and has been so since 1994. He takes oral medications. 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 He has been on oral anticoagulants at Dr. Chanel's prescription. He had taken aspirin 325 mg plus Xarelto 20 mg daily. He is also on Lipitor Date Seen 08/02/18 Time Seen by a Provider: 14:00 Attending Physician Oly Holder MD PCP Chito Erwin DO Referring Physician Date of Admission Aug 01, 2018 at 11:35 Home Medications & Allergies Home Medications Reviewed patient Home Medication Reconciliation performed by pharmacy medication reconciliations cryptographic technician and/or nursing. Patients Allergies have been reviewed. Allergies Allergies Coded Allergies No Known Drug Allergies (Unverified04/02/18) Past Wqeexyp-Htcyie-Zahkdu Hx Past Med/Social Hx: Reviewed Nursing Past Med/Soc Hx Patient Social History Alcohol Use: Denies Use Recreational Drug Use: No Smoking Status: Never a Smoker Physical Abuse Screen: No Sexual Abuse: No Recent Foreign Travel: No Contact w/other who traveled: No Recent Hopitalizations: No Recent Infectious Disease Expo: No Immunizations Up To Date Tetanus Booster (TDap): Unknown Pediatric: No Date of Pneumonia Vaccine: Apr 28, 2016 Date of Influenza Vaccine: Jun 11, 2019 Seasonal Allergies Seasonal Allergies: No Past Medical History Surgeries: Tonsillectomy Currently Using CPAP: No Currently Using BIPAP: No Cardiac: Atrial Fibrillation, Hypertension Gastrointestinal: Gastroesophageal Reflux, Polyps Musculoskeletal: Arthritis Endocrine: Diabetes, Non-Insulin dep Loss of Vision: Bilateral Hearing Impairment: Hard of Hearing History of Blood Disorders: No Adverse Reaction to Blood Alicia: No (N/A) Review of Systems Constitutional: see HPI EENTM: other (jumbled speech) Respiratory: no symptoms reported Cardiovascular: no symptoms reported Gastrointestinal: no symptoms reported Genitourinary: no symptoms reported Musculoskeletal: no symptoms reported Skin: no symptoms reported Psychiatric/Neurological: No Symptoms Reported Physical Exam Physical Exam Vital Signs Capillary Refill : Less Than 3 Seconds Height, Weight, BMI Height: 6'3.00" Weight: 219lbs. 5.4oz. [id number]; 27.4 BMI Method:Stated General Appearance: Other (alert. Speech is clear. He was able to give the day and date without hesitation) Eyes: Bilateral Eye Normal Inspection HEENT: Normal ENT Inspection Neck: Normal Inspection Respiratory: Chest Non Tender, Lungs Clear, Normal Breath Sounds, No Accessory Muscle Use, No Respiratory Distress Cardiovascular: Regular Rate, Rhythm, No Edema, No Gallop, No JVD, No Murmur, Normal Peripheral Pulses Gastrointestinal: Normal Bowel Sounds, No Organomegaly, No Pulsatile Mass, Non Tender, Soft Back: Normal Inspection, No CVA Tenderness, No Vertebral Tenderness Extremity: Normal Capillary Refill, Normal Inspection, Normal Range of Motion, Non Tender, No Calf Tenderness, No Pedal Edema Neurologic/Psychiatric: Alert Skin: Normal Color, Warm/Dry Lymphatic: No Adenopathy Results Results/Procedures Labs Patient resulted labs reviewed. Assessment/Plan Admission Diagnosis 1.abnormal speech pattern consistent with neurologic deficit. 2.diabetes mellitus type II. Admission Status: Observation Clinical Quality Measures DVT/VTE Risk/Contraindication: Risk Factor Score Per Nursin RFS Level Per Nursing on Admit: 3=High Stroke: Date of last known well: Jul 31, 2018 Time of last known well: 10:00 JAH LUGO MD Aug 02, 2018 13:56
--- NOTE | 2018-08-02 15:09 | Discharge Instructions ---
Discharge Instructions Patient Instructions Patient Instructions: Do not take any Janumet until afternoon. Lots of liquids Call Dr. Erwin's office Thursday or to explore the question of CT carotid angiography. Other medications as on the discharge sequence. Activity & Diet Discharge Diet: ADA JAH Allen MD Aug 02, 2018 15:09
[2018-08-02 16:00] VITALS: BP 123/59
[2018-08-02] MEDS ORDERED: RIVAROXABAN 20 MG TABLET (XARELTO) PO SCH ×2 (17:00→21:00)
[2018-08-02] MEDS ORDERED: ATORVASTATIN 40 MG (LIPITOR) TABLET PO SCH (21:00)
[2018-08-02] MEDS ORDERED: lisINopril 10 MG (PRINIVIL) TABLET PO SCH (21:00)
[2018-08-02] MEDS ORDERED: sitaGLIPtin/METFORMIN 50/1000 MG (JANUMET) NON FORM PO SCH (21:00)
--- NOTE | 2018-08-04 14:02 | Physician Query-Final Dx ---
AFTAB BARROS 08/04/18 1402: Final Diagnosis Give Final Diagnosis Please give Final Diagnosis JAH LUGO MD 08/18/18 1325: Final Diagnosis Give Final Diagnosis TIA. AFTAB BARROS Aug 04, 2018 14:02 JAH LUGO MD Aug 18, 2018 13:25
== END 2018-08-02 16:25 | disposition home or self-care (01) | DRG 69 ==
LOC: EDUNIT# 10:16 → ER 10:17 → ICU 11:35 → 4TH 21:55
PROVIDERS: ADMIT Family Medicine; ATTEND Family Medicine
DX: G45.9 Transient cerebral ischemic attack, unspecified (principal); R47.89 Other speech disturbances; E11.9 Type 2 diabetes mellitus without complications; R29.701 NIHSS score 1; I48.91 Unspecified atrial fibrillation; I10 Essential (primary) hypertension; K21.9 Gastro-esophageal reflux disease without esophagitis; M19.91 Primary osteoarthritis, unspecified site; H91.90 Unspecified hearing loss, unspecified ear; Z79.84 Long term (current) use of oral hypoglycemic drugs; Z79.01 Long term (current) use of anticoagulants; Z79.82 Long term (current) use of aspirin; Z86.010 Personal history of colon polyps
CPT/HCPCS: 36415; 70450; 70553; 71045; 80053; 80061; 82947; 82962; 84484; 85025; 85379; 85610; 85730; 93005; 93041; 93306; 93880; 96374; 96375

== ENCOUNTER → 2018-08-26 | Outpatient (CLI) | payer MEDICARE, OTHER ==
[~2018-08-26] MED LIST changes: +ASPI-983 PO; +CHOL20003 PO; +DILT180C PO; +GLUC100016 PO; +IOHEXOL 350 MG/ML 100 ML (OMNIPAQUE 350) VIAL IV ONE; +MV-M1TAB13 PO; +NS 100 ML (IVPB) BAG IV ONE; +RECEIVED CONTRAST (Hold Metformin) IV SCH; +VITA1TAB17 PO; +XARELTO
[2018-08-26 10:41] LABS: BUN/CREATININE RATIO 21; CREATININE SERUM 1.05 MG/DL (0.60-1.30); GFR ESTIMATED > 60
--- NOTE | 2018-08-26 12:07 | Diagnostic Imaging Report ---
INDICATION: Stroke and abnormal recent carotid Doppler. FINDINGS: There is a three-vessel branching pattern to the aortic arch. The common carotid arteries are widely patent. No common carotid artery stenosis is seen. The carotid bifurcations are unremarkable. Proximal internal and external carotid arteries are widely patent. No stenosis is detected. Mid and distal internal carotid arteries are poorly visualized due to inadequate contrast opacification. Cavernous carotid cannot be evaluated. Limited evaluation of the vertebral arteries is noted. No definite stenosis is seen. IMPRESSION: 1. There is no evidence of common carotid stenosis. 2. Proximal internal and external carotid arteries appear to be widely patent. Mid and distal ICAs are poorly evaluated due to poor contrast opacification. Dictated by: Dictated on workstation # [id number]
== END ==
LOC: RAD 09:58
PROVIDERS: ATTEND Internal Medicine
DX: I63.9 Cerebral infarction, unspecified (principal)
CPT/HCPCS: 36415; 70498; 82565; 84520

== ENCOUNTER 2021-10-24 05:56 | Outpatient (CLI) | payer MEDICARE, OTHER ==
[~2021-10-24] VITALS: Ht 190.5 cm; Wt 106.8 kg
[~2021-10-24 05:56] MED LIST changes: +ASPI-1238 PO; -ASPI-983 PO; -DILT180C PO; +DILT180C85 PO; -GLIM4TAB PO; +GLIM4TAB5 PO; -IOHEXOL 350 MG/ML 100 ML (OMNIPAQUE 350) VIAL IV ONE; -LISI10TA2 PO; +LISI10TA25 PO; -NS 100 ML (IVPB) BAG IV ONE; -RECEIVED CONTRAST (Hold Metformin) IV SCH; -RIVA20TA PO; +RIVA20TA2 PO
[2021-10-28] MEDS ORDERED: MULT-1136 PO (14:24)
[2021-10-28] MEDS ORDERED: [UNRECOGNIZED DRUG - CODE] PO (14:24)
[2021-10-28] MEDS ORDERED: CITA10TA12 PO (14:24)
[2021-10-28] MEDS ORDERED: FLAX10004 PO (14:24)
[2021-10-28] MEDS ORDERED: GLUC-235 PO (14:24)
[2021-10-28] MEDS ORDERED: ASPI-999 PO (14:24)
[2021-10-28] MEDS ORDERED: INSU300I3 SQ (14:24)
[2021-10-28] MEDS ORDERED: APIX5TAB PO (14:24)
== END 2021-10-28 14:35 | disposition home or self-care (01) ==
LOC: PREOP 05:56
PROVIDERS: ATTEND Specialist
DX: Z01.818 Encounter for other preprocedural examination (principal)

== ENCOUNTER 2021-11-01 09:05 | Day surgery (SDC) | payer MEDICARE, OTHER ==
[~2021-11-01] VITALS: Ht 190.5 cm; Wt 106.8 kg
[~2021-11-01 09:05] MED LIST changes: +APIX5TAB PO; +ASPI-999 PO; +CITA10TA12 PO; +GLUC-235 PO; +INSU300I3 SQ; +MULT-1136 PO; +[UNRECOGNIZED DRUG - CODE] PO
[2021-11-01] MEDS ORDERED: MIDAZOLAM 2 MG/2 ML (VERSED) VIAL ONE (09:14)
[2021-11-01] MEDS ORDERED: TIMOLOL MALEATE 0.5% 5 ML (TIMOPTIC) BTL OU PRN (10:00)
[2021-11-01] MEDS ORDERED: LIDOCAINE PF 1% 2 ML VIAL IR PRN (10:00)
[2021-11-01] MEDS ORDERED: MOXIFLOXACIN OPHTH SOLN 5 MG/ML 0.3 ML SYRINGE OP ONE (10:00)
[2021-11-01] MEDS ORDERED: POVIDONE (BETADINE) OPHTH SOLN 5% 30 ML OP ONE (10:00)
[2021-11-01] MEDS: TETRACAINE 0.5% OPHTH SOLN 4 ML BTL (SINGLE DOSE ONLY) OU PRN ×4 (10:01→10:18)
[2021-11-01] MEDS: TROPICAMIDE 1% OPH SOLN (MYDRIACYL) 15 ML BTL OP SCH ×3 (10:07→10:18)
[2021-11-01] MEDS: PHENYLEPHRINE 10% OPHTH (NEO-SYN) 5 ML BTL OU SCH ×3 (10:07→10:18)
[2021-11-01 10:18] VITALS: BP 147/82
--- NOTE | 2021-11-01 10:51 | Ophthalmologist Pre-Op Note ---
Pre-Operative Progress Note H&P Reviewed The H&P was reviewed, patient examined and no changes noted. Date H&P Reviewed: Nov 01, 2021 Time H&P Reviewed: 10:51 Pre-Op Dx Cataract, Right Eye YOSEPH COREA MD Nov 01, 2021 10:51
--- NOTE | 2021-11-01 11:10 | Ophthalmology Operative Report ---
Cataract removal/placement IOL PREOPERATIVE DIAGNOSIS: Cataract Right Eye POSTOPERATIVE DIAGNOSIS: Cataract Right Eye PROCEDURE: Cataract removal and placement of posterior chamber implant, right eye SURGEON: Jed Corea ANESTHESIA: Topical with sedation COMPLICATIONS: None ESTIMATED BLOOD LOSS: Minimal DESCRIPTION OF PROCEDURE: After proper informed consent was obtained, the patient, a 81 male, was taken to the Operating Room and the right eye was anesthetized with tetracaine. The right eye was then prepped and draped in the usual manner. A wire lid speculum was placed. A paracentesis was made at the left hand position. Preservative free lidocaine was injected into the anterior chamber followed by viscoelastic. A clear corneal incision was made in the temporal position. A capsulorrhexis was preformed and the central nuclear and cortical material were removed. The posterior capsule was polished and Sohan 20.5 AU00T0 IOL was placed into the capsular bag. The residual viscoelastic was aspirated and balanced saline solution was injected into the anterior chamber. Moxifloxacin was injected into the anterior chamber. The wound was checked and found to be water tight. The patient tolerated the procedure well without complications. JED COREA MD Nov 01, 2021 11:10
[2021-11-01 11:16] VITALS: BP 163/83
[2021-11-01] MEDS ORDERED: acetaZOLAMIDE ER 500 MG CAP (DIAMOX SEQUELS) PO ONE (12:00)
--- NOTE | 2021-11-01 13:20 | Anesthesia-General Post-Op ---
MAC Patient Condition Mental Status/LOC: Same as Preop Cardiovascular: Satisfactory Nausea/Vomiting: Absent Respiratory: Satisfactory Pain: Controlled Complications: Absent Post Op Complications Complications None Follow Up Care/Instructions Patient Instructions None needed. Anesthesiology Discharge Order Discharge Order Patient is doing well, no complaints, stable vital signs, no apparent adverse anesthesia problems. No complications reported per nursing. AR MOTTA CRNA Nov 01, 2021 13:20
== END 2021-11-01 11:20 | disposition home or self-care (01) ==
LOC: SDC 09:05
PROVIDERS: ATTEND Specialist
DX: E11.36 Type 2 diabetes mellitus with diabetic cataract (principal); H25.9 Unspecified age-related cataract; Z79.4 Long term (current) use of insulin
CPT/HCPCS: 66984; V2632

== ENCOUNTER → 2021-11-06 | Outpatient (CLI) | payer MEDICARE, OTHER | END | disposition home or self-care (01) | LOC: PREOP 05:31 | PROVIDERS: ATTEND Specialist | DX: Z01.818 Encounter for other preprocedural examination (principal) ==

== ENCOUNTER 2021-11-15 09:45 | Day surgery (SDC) | payer MEDICARE, OTHER ==
[~2021-11-15] VITALS: Ht 190.5 cm; Wt 106.8 kg
[2021-11-15] MEDS: TETRACAINE 0.5% OPHTH SOLN 4 ML BTL (SINGLE DOSE ONLY) OU PRN ×4 (09:54→10:12)
[2021-11-15] MEDS ORDERED: MOXIFLOXACIN OPHTH SOLN 5 MG/ML 0.3 ML SYRINGE OP ONE (10:00)
[2021-11-15] MEDS: PHENYLEPHRINE 10% OPHTH (NEO-SYN) 5 ML BTL OU SCH ×3 (10:00→10:12)
[2021-11-15] MEDS ORDERED: LIDOCAINE PF 1% 2 ML VIAL IR PRN (10:00)
[2021-11-15] MEDS ORDERED: TIMOLOL MALEATE 0.5% 5 ML (TIMOPTIC) BTL OU PRN (10:00)
[2021-11-15] MEDS ORDERED: POVIDONE (BETADINE) OPHTH SOLN 5% 30 ML OP ONE (10:00)
[2021-11-15] MEDS: TROPICAMIDE 1% OPH SOLN (MYDRIACYL) 15 ML BTL OP SCH ×3 (10:00→10:12)
[2021-11-15 10:09] VITALS: BP 144/75
--- NOTE | 2021-11-15 10:42 | Ophthalmologist Pre-Op Note ---
Pre-Operative Progress Note H&P Reviewed The H&P was reviewed, patient examined and no changes noted. Date H&P Reviewed: November 15, 2021 Time H&P Reviewed: 10:42 Pre-Op Dx Cataract, Left Eye YOSEPH COREA MD November 15, 2021 10:42
[2021-11-15] MEDS ORDERED: MIDAZOLAM 2 MG/2 ML (VERSED) VIAL ONE (10:46)
--- NOTE | 2021-11-15 11:10 | Ophthalmology Operative Report ---
Cataract removal/placement IOL PREOPERATIVE DIAGNOSIS: Cataract Left Eye POSTOPERATIVE DIAGNOSIS: Cataract Left Eye PROCEDURE: Cataract removal and placement of posterior chamber implant, left eye SURGEON: Jed Corea ANESTHESIA: Topical with sedation COMPLICATIONS: None ESTIMATED BLOOD LOSS: Minimal DESCRIPTION OF PROCEDURE: After proper informed consent was obtained, the patient, a 81 male, was taken to the Operating Room and the left eye was anesthetized with tetracaine. The left eye was then prepped and draped in the usual manner. A wire lid speculum was placed. A paracentesis was made at the left hand position. Preservative free lidocaine was injected into the anterior chamber followed by viscoelastic. A clear corneal incision was made in the temporal position. A capsulorrhexis was preformed and the central nuclear and cortical material were removed. The posterior capsule was polished and an Sohan 20.5 AU00T0 was placed into the capsular bag. The residual viscoelastic was aspirated and balanced saline solution was injected into the anterior chamber. Moxifloxacin was injected into the anterior chamber. The wound was checked and found to be water tight. The patient tolerated the procedure well without complications. JED COREA MD November 15, 2021 11:10
[2021-11-15 11:16] VITALS: BP 151/80
[2021-11-15] MEDS ORDERED: acetaZOLAMIDE ER 500 MG CAP (DIAMOX SEQUELS) PO ONE (12:00)
--- NOTE | 2021-11-15 14:03 | Anesthesia-General Post-Op ---
MAC Patient Condition Mental Status/LOC: Same as Preop Cardiovascular: Satisfactory Nausea/Vomiting: Absent Respiratory: Satisfactory Pain: Controlled Complications: Absent Post Op Complications Complications None Follow Up Care/Instructions Patient Instructions None needed. Anesthesiology Discharge Order Discharge Order Patient is doing well, no complaints, stable vital signs, no apparent adverse anesthesia problems. No complications reported per nursing. WILI ARNOLD CRNA November 15, 2021 14:03
== END 2021-11-15 11:17 | disposition home or self-care (01) ==
LOC: SDC 09:45
PROVIDERS: ATTEND Specialist
DX: E11.36 Type 2 diabetes mellitus with diabetic cataract (principal); H25.9 Unspecified age-related cataract; Z79.4 Long term (current) use of insulin; Z79.01 Long term (current) use of anticoagulants; Z79.82 Long term (current) use of aspirin
CPT/HCPCS: 66984; V2632

== ENCOUNTER 2022-02-06 12:12 | Emergency (ER) | payer MEDICARE, OTHER ==
[~2022-02-06] VITALS: Ht 190 cm; Wt 108.0 kg
[2022-02-06] MEDS ORDERED: DEXTROSE 50% 50 ML (IMS) SYR IV ONE (12:45)
[2022-02-06] MEDS ORDERED: DEXTROSE 50% 50 ML (IMS) SYR ONE (12:46)
--- NOTE | 2022-02-06 12:57 | ED Neurological Problem ---
General Chief Complaint: Neuro-Stroke Like Symptoms Stated Complaint: AMS Nursing Triage Note: PT WITH STATES THAT ABOUT 1115 PT WAS HOLDING 2 PHONES ADN LOOKED AT HIS AND STATED WHAT DO I DO. PT WOULDN'T TALK WHEN ASKED QUESTIONS AT THE HOUSE, PT HAS HX OF A STROKE ABOUT 2 YRS AGO AND STATED HE WAS ACTING THE SAME. UNSTEADY ON HIS FEET BUT DID NOT FALL. HX OF A-FIB, DIABETIS TYPE I, BACK SURGERY Source: patient Exam Limitations: no limitations History of Present Illness Date Seen by Provider: Feb 06, 2022 Time Seen by Provider: 12:56 Initial Comments Patient is a 81-year-old male with a history of stroke, A. fib currently on Eliquis, type 2 diabetes who presents to ED for strokelike symptoms. Around 1130 this morning patient was holding 2 phones at home patient was unaware what he was doing at the phone. attempted to talk to patient patient would not respond. She immediately drove from [place] to the ER. On arrival she states patient was able to respond to questions. His blood sugar on arrival was 44. Patient Was given a amp of D50 with improvement of his symptoms. She states that his symptoms today felt very similar to when he had a stroke in July 2018. Patient denies of any unilateral muscle weakness or sensory changes, visual changes, chest pain, cough, vomiting, diarrhea, headache. Allergies and Home Medications Allergies Coded Allergies: No Known Drug Allergies (Unverified , 10/28/21) Patient Home Medication List Home Medication List Reviewed: Yes Apixaban (Eliquis) 5 Mg Tablet, 5 MG PO BID, (Reported) Entered as Reported by: LUIS TORRE on 10/28/21 1424 Aspirin (Aspirin) 81 Mg Tab.chew, 81 MG PO DAILY, (Reported) Entered as Reported by: LUIS TORRE on 10/28/21 1424 Atorvastatin Calcium (Atorvastatin Calcium) 40 Mg Tablet, 40 MG PO HS, (Reported) Entered as Reported by: KIT HAQ on 04/02/18 1042 Citalopram Hydrobromide (Celexa) 10 Mg Tablet, 10 MG PO HS, (Reported) Entered as Reported by: LUIS TORRE on 10/28/21 1424 Diltiazem HCl (Taztia Xt) 180 Mg Capsule.er, 180 MG PO DAILY, (Reported) Entered as Reported by: LUIS TORRE on 10/28/21 142 Flaxseed Oil (Flaxseed Oil) 1,000 Mg Capsule, 1,000 MG PO DAILY, (Reported) Entered as Reported by: LUIS TORRE on 10/28/21 142 Glucos Sul 2Kcl/MSM/Chond/C/Mn (Glucosamine Chondroitin Cap) 1 Each Capsule, 1 EACH PO DAILY, (Reported) Entered as Reported by: LUIS TORRE on 10/28/21 142 Insulin Glargine,Hum.rec.anlog (Toujeo Max Solostar) 300 Unit/1 Ml Insuln.pen, 900 UNIT SQ HS, (Reported) Entered as Reported by: LUIS TORRE on 10/28/21 142 Lisinopril (Lisinopril) 10 Mg Tablet, 20 MG PO DAILY, (Reported) Entered as Reported by: KIT HAQ on 04/02/18 104 Multivitamin (Multivitamin) 1 Each Tablet, 1 EACH PO DAILY, (Reported) Entered as Reported by: LUIS TORRE on 10/28/211423 Review of Systems Review of Systems Constitutional: No chills, No diaphoresis, No malaise, No weakness Eyes: Denies Blurred Vision, Denies Drainage, Denies Decreased Acuity, Denies Pain, Denies Photophobia, Denies Shadows Ears, Nose, Mouth, Throat: denies ear pain, denies ear discharge Respiratory: No cough, No dyspnea on exertion Cardiovascular: No chest pain, No edema Gastrointestinal: No abdominal pain, No diarrhea, No nausea, No vomiting Genitourinary: No decreased output, No discharge Musculoskeletal: No back pain, No joint pain Skin: No change in color, No change in hair/nails Psychiatric/Neurological: Other (ams) Hematologic/Lymphatic: Denies Anemia Past Audiofg-Ykynrs-Tuisyu Hx Patient Social History Tobacco Use?: No Substance use?: No Alcohol Use?: No Immunizations Up To Date Tetanus Booster (TDap): Unknown PED Vaccines UTD: No 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[employer]: [employer] Seasonal Allergies Seasonal Allergies: No Past Medical History Surgery/Hospitalization HX: STROKE, A-FIB, DIABETIS TYPE I, BACK SURGERY Surgeries: Yes (BACK) Tonsillectomy Respiratory: Yes Sleep Apnea Currently Using CPAP: No Currently Using BIPAP: No Cardiac: Yes Atrial Fibrillation, Hypertension Neurological: No Genitourinary: No Gastrointestinal: Yes (RECTAL BLEEDING) Gastroesophageal Reflux, Polyps Musculoskeletal: Yes Arthritis Endocrine: Yes Diabetes, Non-Insulin dep HEENT: Yes Loss of Vision: Bilateral Hearing Impairment: Hard of Hearing Cancer: No Psychosocial: No Integumentary: No Blood Disorders: No Adverse Reaction/Blood Tranf: No (N/A) Physical Exam Vital Signs Vital Signs - First Documented 02/06/22 12:26 Temp 36.0 Pulse 47 Resp 18 B/P (MAP) 139/74 (95) Pulse Ox 97 O2 Delivery Room Air Capillary Refill : Less Than 3 Seconds Height, Weight, BMI Height: 6'3.00" Weight: 219lbs. 5.4oz. 99.662388mj; 29.00 BMI Method:Stated General Appearance: WD/WN HEENT: PERRL/EOMI, normal ENT inspection, TMs normal Neck: non-tender, full range of motion, supple, normal inspection Respiratory: chest non-tender, lungs clear, normal breath sounds, no respiratory distress, no accessory muscle use Cardiovascular: regular rate, rhythm, no edema, no gallop, no JVD Gastrointestinal: normal bowel sounds, non tender, soft, no organomegaly, no pulsatile mass Back: normal inspection, no CVA tenderness Extremities: normal range of motion, non-tender, normal inspection, no pedal edema, no calf tenderness 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/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 as 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, no motor/sensory deficits, alert, normal mood/affect, oriented x 3 Motor/Sensory: no motor deficit, no sensory deficit, no pronator drift Skin: normal color, warm/dry Stroke Onset of Symptoms Time of Symptom Onset: 11:30 Onset of Symptoms: Yes NIH Stroke Scale Assessment Select: Initial Level of Consciousness: 0=Alert (0), Level of Consciousness- Questions: 0=Answers both month/age (0), LOC Commands: 0=Performs both tasks (0), Gaze: Normal (0), Visual Hernandez: 0=No visual loss (0), Facial Movement (Facial Paresis): 0=Normal symmetrical mnt (0), Motor Function-Arms Right: 0=No drift (0), Motor Function-Arms Left: 0=No drift (0), Motor Function-Legs Right: 0=No drift (0), Motor Function-Legs Left: 0=No drift (0), Limb Ataxia: 0=Absent (0), Best Language: 0=No aphasia (0), Dysarthria: 0=Normal (0), Extinction & Inattention: 0=No abnormality (0), Total: 0 Progress/Results/Core Measures Results/Orders Lab Results Laboratory Tests Test 02/06/22 12:43 02/06/22 12:51 02/06/22 14:42 02/06/22 14:43 Range/Units Glucometer 44 *L 159 H 70-110 MG/DL White Blood Count 5.0 4.3-11.0 10^3/uL Red Blood Count 3.94 L 4.30-5.52 10^6/uL Hemoglobin 13.7 13.3-17.7 g/dL Hematocrit 41 40-54 % Mean Corpuscular Volume 103 H 80-99 fL Mean Corpuscular Hemoglobin 35 H 25-34 pg Mean Corpuscular Hemoglobin Concent 34 32-36 g/dL Red Cell Distribution Width 13.2 10.0-14.5 % Platelet Count 119 L 130-400 10^3/uL Mean Platelet Volume 11.6 9.0-12.2 fL Immature Granulocyte % (Auto) 0 % Neutrophils (%) (Auto) 56 42-75 % Lymphocytes (%) (Auto) 31 12-44 % Monocytes (%) (Auto) 11 0-12 % Eosinophils (%) (Auto) 2 0-10 % Basophils (%) (Auto) 1 0-10 % Neutrophils # (Auto) 2.8 1.8-7.8 10^3/uL Lymphocytes # (Auto) 1.6 1.0-4.0 10^3/uL Monocytes # (Auto) 0.5 0.0-1.0 10^3/uL Eosinophils # (Auto) 0.1 0.0-0.3 10^3/uL Basophils # (Auto) 0.0 0.0-0.1 10^3/uL Immature Granulocyte # (Auto) 0.0 0.0-0.1 10^3/uL Percent Immature Platelet Fraction 6.2 0.0-7.6 % Prothrombin Time 17.2 H 12.2-14.7 SEC INR Comment 1.4 0.8-1.4 Activated Partial Thromboplast Time 35 24-35 SEC Sodium Level 142 135-145 MMOL/L Potassium Level 4.3 3.6-5.0 MMOL/L Chloride Level 106 98-107 MMOL/L Carbon Dioxide Level 24 21-32 MMOL/L Anion Gap 12 5-14 MMOL/L Blood Urea Nitrogen 18 7-18 MG/DL Creatinine 1.16 0.60-1.30 MG/DL Estimat Glomerular Filtration Rate 64 BUN/Creatinine Ratio 16 Glucose Level 49 *L 70-105 MG/DL Calcium Level 8.9 8.5-10.1 MG/DL Corrected Calcium 9.1 8.5-10.1 MG/DL Total Bilirubin 1.2 H 0.1-1.0 MG/DL Aspartate Amino Transf (AST/SGOT) 25 5-34 U/L Alanine Aminotransferase (ALT/SGPT) 18 0-55 U/L Alkaline Phosphatase 82 40-136 U/L Troponin I < 0.028 <0.028 NG/ML Total Protein 6.6 6.4-8.2 GM/DL Albumin 3.7 3.2-4.5 GM/DL Urine Color YELLOW Urine Clarity CLEAR Urine pH 5.0 5-9 Urine Specific [place] 1.015 L 1.016-1.022 Urine Protein NEGATIVE NEGATIVE Urine Glucose (UA) TRACE H NEGATIVE Urine Ketones NEGATIVE NEGATIVE Urine Nitrite NEGATIVE NEGATIVE Urine Bilirubin NEGATIVE NEGATIVE Urine Urobilinogen 0.2 < = 1.0 MG/DL Urine Leukocyte Esterase NEGATIVE NEGATIVE Urine RBC (Auto) NEGATIVE NEGATIVE Urine RBC NONE /HPF Urine WBC NONE /HPF Urine Squamous Epithelial Cells RARE /HPF Urine Crystals NONE /LPF Urine Bacteria NEGATIVE /HPF Urine Casts NONE /LPF Urine Mucus NEGATIVE /LPF Urine Culture Indicated NO My Orders Orders - TARIQ MATHIAS PA D50w (Emergency) Syringe (Dextrose 50% 5 (02/06/22 12:45) Cbc With Automated Diff (02/06/22 12:58) Protime With Inr (02/06/22 12:58) Partial Thromboplastin Time (02/06/22 12:58) Comprehensive Metabolic Panel (02/06/22 12:58) Troponin I [place] (02/06/22 12:58) Ua Culture If Indicated (02/06/22 12:58) Chest 1 View, Ap/Pa Only (02/06/22 12:58) Nothing By Mouth (02/06/22 Lunch) Accucheck Stat ONCE (02/06/22 12:58) Ed Iv/Invasive Line Start (02/06/22 12:58) Vital Signs Stroke Patient Q15M (02/06/22 12:58) Monitor-Rhythm Ecg Trace Only (02/06/22 12:58) Dysphagia Screening Tool [id number] (02/06/22 12:58) Accucheck Stat ONCE (02/06/22 13:48) Medications Given in ED Current Medications Medications Dose Ordered Sig/Jason Route Start Time Stop Time Status Last Admin Dose Admin Dextrose 50 ml ONCE ONCE IV 02/06/22 12:45 02/06/22 12:46 DC 02/06/22 12:52 50 ML Vital Signs/I&O 02/06/22 12:26 Temp 36.0 Pulse 47 Resp 18 B/P (MAP) 139/74 (95) Pulse Ox 97 O2 Delivery Room Air Blood Pressure Mean: 95 FSBG Bedside Testing Finger Stick Blood Glucose: 44 Blood Glucose Action Taken: provider notified Departure Communication (PCP) Patient with a history of stroke in 2019 presents ED concerning for stroke from PO. states patient was started to become confused around 11:30 AM and was not responding to questions. On arrival Accu-Chek 44. Slow to respond. Patient was given amp of D50 with significant improvement. Initial CT scan of the head was unremarkable. EKG atrial fibrillation with slow ventricular response at 42 bpm, QRS duration 86 MS, QTc 407 MS. Patient is aware of his low heart rate. Patient on arrival with no current complaints. NIH was 0. Lab work was otherwise unremarkable. Patient recheck blood sugar 2 hours from the amp of D50 was 159. Was eating and drinking at bedside. History of low blood sugar in the morning. Discussed patient with Dr. Frias neurology at [facility] who felt like this was likely result from his low blood sugar recommend no further stroke work-up at this time. Family agrees. Patient with a steady gait. states patient appears much better at this time. Discussed continue monitoring blood sugar. Discussed follow-up with your dialysis clinical manager regarding your bradycardia if any changes need to be made with medication. Currently asymptomatic. Heart rate fluctuated between the mid 40s and mid 50s. Asymptomatic. Impression Primary Impression: Hypoglycemia Disposition: 01 HOME, SELF-CARE Condition: Stable Departure-Patient Inst. Decision time for Depature: 14:56 Referrals: NICKY WIN DO (PCP/Family) Primary Care Physician Patient Instructions: Low Blood Sugar, Adult ED Add. Discharge Instructions: Any worsening symptoms return back to ED for further evaluation All discharge instructions reviewed with patient and/or family. Voiced understanding. TARIQ MATHIAS Feb 06, 2022 12:57
[2022-02-06 13:09] LABS: EOSINOPHILS # (AUTO) 0.1 10^3/uL (0.0-0.3); EOSINOPHILS % (AUTO) 2 % (0-10); MEAN CORPUSCULAR VOLUME 103 fL (80-99)
[2022-02-06 13:11] LABS: BASOPHILS % (AUTO) 1 % (0-10); HEMATOCRIT 41 % (40-54); HEMOGLOBIN 13.7 g/dL (13.3-17.7); LYMPHOCYTES # (AUTO) 1.6 10^3/uL (1.0-4.0); LYMPHOCYTES % (AUTO) 31 % (12-44); MEAN CORPUSCULAR HEMOGLOBIN 35 pg (25-34); MEAN CORPUSCULAR HGB CONC 34 g/dL (32-36); MEAN PLATELET VOLUME 11.6 fL (9.0-12.2); MONOCYTES # (AUTO) 0.5 10^3/uL (0.0-1.0); MONOCYTES % (AUTO) 11 % (0-12); NEUTROPHILS # (AUTO) 2.8 10^3/uL (1.8-7.8); NEUTROPHILS % (AUTO) 56 % (42-75); PLATELET COUNT 119 10^3/uL (130-400)
[2022-02-06 13:13] LABS: ALBUMIN 3.7 GM/DL (3.2-4.5); CHLORIDE 106 MMOL/L (98-107); POTASSIUM 4.3 MMOL/L (3.6-5.0); SODIUM 142 MMOL/L (135-145)
[2022-02-06 13:14] LABS: CALCIUM 8.9 MG/DL (8.5-10.1)
[2022-02-06 13:15] LABS: TOTAL PROTEIN 6.6 GM/DL (6.4-8.2)
[2022-02-06 13:16] LABS: CARBON DIOXIDE 24 MMOL/L (21-32)
[2022-02-06 13:17] LABS: BILIRUBIN,TOTAL 1.2 MG/DL (0.1-1.0)
[2022-02-06 13:19] LABS: ALKALINE PHOSPHATASE 82 U/L (40-136); CREATININE SERUM 1.16 MG/DL (0.60-1.30); GFR ESTIMATED 64
[2022-02-06 13:20] LABS: BUN/CREATININE RATIO 16; INR 1.4 (0.8-1.4); PROTHROMBIN TIME PATIENT 17.2 SEC (12.2-14.7)
[2022-02-06 13:22] LABS: ALANINE AMINOTRANSFERASE 18 U/L (0-55)
[2022-02-06 13:37] LABS: GLUCOSE 49 MG/DL (70-105)
--- NOTE | 2022-02-06 13:41 | Diagnostic Imaging Report ---
EXAMINATION: Portable erect AP chest at 1312 hours. INDICATION: Atrial fibrillation, altered mental status. COMPARISON: 08/01/2018. FINDINGS: The heart size is stable when compared to the prior exam. The lungs are clear. There is no evidence for failure, pneumonia or for a pleural effusion. The mediastinum is not widened. The osseous structures are intact. IMPRESSION: There is no evidence for active disease. Dictated by: Dictated on workstation # [id number]
--- NOTE | 2022-02-06 13:41 | Diagnostic Imaging Report ---
CLINICAL INDICATIONS: Patient with slurred speech, facial droop. Patient had a stroke in 2019. EXAM: Axial CT scan of the brain performed without IV contrast. High-resolution axial CT brain images with sagittal and coronal reformations were also created. Auto Exposure Controls were utilized during the CT exam to meet ALARA standards for radiation dose reduction. COMPARISON: MRI of the brain with and without contrast dated 08/02/2018. FINDINGS: There is no evidence of acute cerebral infarct, intracranial hemorrhage, or gross mass effect. There is no dense vessel sign seen. Stable brain parenchymal volume loss which appears appropriate for patient's age. Again seen, patchy and confluent areas of low-density involving the white matter of both cerebral hemispheres, likely representing chronic small vessel ischemic disease and leukoaraiosis. There is normal grewal-white matter distinction. There is no significant midline shift or herniation. There is no evidence of hydrocephalus. The basal cisterns are unremarkable. The skull, extracranial soft tissue, and orbits are unremarkable. There is a small to moderate sized area of mucosal thickening involving the left maxillary sinus. There is mild mucosal thickening involving the ethmoid sinus. Temporal bones show no significant abnormality. IMPRESSION: 1: There is no CT evidence of acute intracranial process. There is no dense vessel sign. 2: Age-related brain parenchymal changes with chronic small vessel ischemic disease and leukoaraiosis. Results of this report were discussed with Dr. Belinda Murray via the telephone on 02/06/2022 at 1245 hours. Dictated by: Dictated on workstation # [id number]
[2022-02-06 15:01] LABS: BILIRUBIN,URINE NEGATIVE (NEGATIVE); CLARITY,URINE CLEAR; COLOR,URINE YELLOW; GLUCOSE, URINE (UA) TRACE (NEGATIVE); KETONES,URINE NEGATIVE (NEGATIVE); LEUKOCYTE ESTERASE ,URINE NEGATIVE (NEGATIVE); NITRITE,URINE NEGATIVE (NEGATIVE); PROTEIN,URINE NEGATIVE (NEGATIVE)
[2022-02-06 15:14] LABS: BACTERIA,URINE NEGATIVE /HPF; SQUAMOUS EPITHELIAL CELL,UR RARE /HPF
[2022-02-06 15:45] VITALS: BP 106/86
== END 2022-02-06 15:45 | disposition home or self-care (01) ==
LOC: EDUNIT# 12:12 → ER 12:13
DX: E10.65 Type 1 diabetes mellitus with hyperglycemia (principal); I48.91 Unspecified atrial fibrillation; Z86.73 Personal history of transient ischemic attack (TIA), and cerebral infarction without residual deficits; Z79.01 Long term (current) use of anticoagulants
CPT/HCPCS: 36415; 70450; 71045; 80053; 81000; 82947; 84484; 85025; 85610; 85730; 93005; 93041

== ENCOUNTER → 2022-04-11 | Outpatient (RCR) | payer MEDICARE, OTHER | END | disposition home or self-care (01) | LOC: ONC 03-31 08:27 | PROVIDERS: ATTEND Radiology Radiation Oncology | DX: Z51.0 Encounter for antineoplastic radiation therapy (principal); G47.9 Sleep disorder, unspecified; G47.33 Obstructive sleep apnea (adult) (pediatric); I10 Essential (primary) hypertension; E11.9 Type 2 diabetes mellitus without complications | CPT/HCPCS: 77290; 77300; 77334; G0463; 77280; 77332; 77336; 99204 ==

== ENCOUNTER → 2022-05-12 | Outpatient (RCR) | payer MEDICARE, OTHER | END | disposition home or self-care (01) | LOC: ONC 04-14 13:14 | PROVIDERS: ATTEND Radiology Radiation Oncology | DX: Z51.0 Encounter for antineoplastic radiation therapy (principal); I10 Essential (primary) hypertension; E11.9 Type 2 diabetes mellitus without complications | CPT/HCPCS: 77336 ==

== ENCOUNTER 2022-05-21 12:59 | Outpatient (RCR) | payer MEDICARE, OTHER | END 2022-06-11 | disposition home or self-care (01) | LOC: ONC 12:59 | PROVIDERS: ATTEND Radiology Radiation Oncology | DX: Z51.0 Encounter for antineoplastic radiation therapy (principal); C44.311 Basal cell carcinoma of skin of nose; I10 Essential (primary) hypertension; E11.9 Type 2 diabetes mellitus without complications | CPT/HCPCS: 77412; G0463; 77336 ==

== ENCOUNTER → 2022-06-02 | Outpatient (CLI) | payer MEDICARE, OTHER ==
[~2022-06-02] MED LIST changes: +GADOTERATE 0.5 MMOL/ML (CLARISCAN) 20 ML VIAL IV ONE
--- NOTE | 2022-06-02 11:09 | Diagnostic Imaging Report ---
PROCEDURE: MR imaging of the brain with and without contrast. TECHNIQUE: Multiplanar, multisequence MR imaging of the brain was performed with and without contrast. INDICATION: Right-sided hearing loss for 2 weeks. Comparison is made with prior MRI of the brain from 08/02/2018. No diffusion restriction is identified to suggest acute ischemia. Ventricles and sulci remain prominent consistent with cerebral volume loss. There is extensive periventricular subcortical white matter changes noted consistent with chronic microvascular ischemia. The normal expected flow-voids within the carotid siphons are seen. No acute intra-axial or extra-axial hemorrhage is detected. No abnormal enhancement is identified following contrast administration. Specifically, cerebellopontine angles are unremarkable. No CP angle mass is identified. There are no findings to suggest vestibular schwannoma. The corpus callosum is unremarkable. The sella and parasellar structures are unremarkable. IMPRESSION: Stable chronic changes when compared with exam from 08/02/2018. No acute features identified. No cerebellopontine angle mass is detected. Dictated by: Dictated on workstation # [id number]
== END ==
LOC: RAD 09:30
PROVIDERS: ATTEND Otolaryngology Otolaryngology/Facial Plastic Surgery
DX: H91.91 Unspecified hearing loss, right ear (principal)
CPT/HCPCS: 70553

== ENCOUNTER 2022-06-26 09:20 | Outpatient (RCR) | payer MEDICARE, OTHER ==
[~2022-06-26 09:20] MED LIST changes: -GADOTERATE 0.5 MMOL/ML (CLARISCAN) 20 ML VIAL IV ONE
== END 2022-06-27 14:15 | disposition still patient (30) ==
LOC: ONC 09:20
PROVIDERS: ATTEND Radiology Radiation Oncology
DX: G47.33 Obstructive sleep apnea (adult) (pediatric) (principal); I10 Essential (primary) hypertension; E11.9 Type 2 diabetes mellitus without complications; G47.9 Sleep disorder, unspecified
CPT/HCPCS: 99213